=== PATIENT | male | born 1985 | race Caucasian/White ===

== ENCOUNTER 2023-06-12 15:50 | Emergency (ER) | payer BC, SELFPAY ==
[2023-06-12 16:02] VITALS: BP 174/107; PULSE 85; RESP 20; TEMP 35.6; O2SAT 97; BMI 40.0
--- NOTE | 2023-06-12 16:33 | ED_ITS ---
HPI - Allergic Reaction General Chief complaint: Allergic Reaction Stated complaint: allergic reaction Time Seen by Provider: 06/12/23 16:01 History of Present Illness HPI narrative: This 37-year-old male comes in reporting generalized maculopapular rash that is pruritic which began last evening. He does not know of any exposures or triggers that may have caused these symptoms. He denies having any sign of infection. He has not had any fever or pain. Related Data Home Medications Medication Instructions Recorded Confirmed No Known Home Medications 06/12/23 06/12/23 Previous Rx's Medication Instructions Recorded methylprednisolone 4 mg tablets in See Rx Instructions PO .COMPLEX 06/12/23 a dose pack (Medrol (Maximo)) #21 ea triamcinolone acetonide 0.1 % 1 applic topical BID #30 grams 06/12/23 topical cream Allergies Allergy/AdvReac Type Severity Reaction Status Date / Time amoxicillin Allergy Verified 06/12/23 16:05 Review of Systems Status of ROS Reports: 10 or more systems reviewed and unremarkable except as noted in History and below Narrative Constitutional: No fevers, no weight gain or loss. Eyes: No discharge. No vision changes. HENT: No congestion, no sore throat, no ear pain. Cardiovascular: No chest pain, no palpitations. Respiratory: No shortness of breath, no wheezes, no cough. Gastrointestinal: No abdominal pain, no vomiting, no diarrhea. Genitourinary: No dysuria, no hematuria. Musculoskeletal: Normal range of motion. Skin: Rash as described above. Neurological: No dizziness, weakness, sensory change, speech change. Endo/Heme/Allergies: No bruising or bleeding. No polydipsia. Pysch: no suicidality, no anxiety, no insomnia. All other systems reviewed and are negative. PFSH PFS Social History Smoking Status: Never smoker How often do you have a drink containing alcohol: never AUDIT-C Alcohol total score: 0 Non-prescribed substance use: denies use Exam Narrative: Exam Narrative: Constitutional: Well-developed, well-nourished, no acute distress. HEENT: Normocephalic, atraumatic. Neck: Normal range of motion. Nontender. Supple. Heart: Regular. No murmurs. Normal rate. Intact distal pulses. Lungs: Clear to auscultation. No chest discomfort. No wheezes, rhonchi, or rales. Abdomen: Normal bowel sounds. Nontender. No rebound tenderness. Genitalia: Deferred. Back: No midline tenderness. Normal range of motion. Extremities: Normal range of motion. No injury. Skin: Intact. Pruritic nonconfluent maculopapular rash scattered throughout his body. Neurologic: No altered sensation. No weakness. Alert and oriented. Psychiatric: No suicidality. No anxiety or depression. No insomnia. Nursing notes and vitals signs are reviewed. Const: Vital Signs, click to edit/add: Vital Signs - 24 hr 06/12/23 16:02 06/12/23 16:45 06/12/23 17:01 Temperature 96.0 F L Pulse Rate 73 74 Pulse Rate [Right Pulse Oximeter] 85 Respiratory Rate 20 16 Blood Pressure 122/86 Blood Pressure [Ri ght Upper Arm] 174/107 H Pulse Oximetry 97 95 95 Oxygen Delivery Me thod Room Air Room Air 06/12/23 17:15 Temperature Pulse Rate 80 Pulse Rate [Right Pulse Oximeter] Respiratory Rate Blood Pressure Blood Pressure [Ri ght Upper Arm] Pulse Oximetry 96 Oxygen Delivery Me thod Course Vital Signs Vital signs: Initial Vital Signs Temperature 96.0 F L 06/12/23 16:02 Temperature Source Temporal Artery Scan 06/12/23 16:02 Pulse Rate 85 06/12/23 16:02 Respiratory Rate 20 06/12/23 16:02 Blood Pressure 174/107 H 06/12/23 16:02 Blood Pressure Mean 129 H 06/12/23 16:02 Blood Pressure Position Sitting 06/12/23 16:02 Pulse Oximetry 97 06/12/23 16:02 Oxygen Delivery Method Room Air 06/12/23 16:02 Vital Signs Temperature 96.0 F L 06/12/23 16:02 Pulse Rate 85 06/12/23 16:02 Respiratory Rate 20 06/12/23 16:02 Blood Pressure 174/107 H 06/12/23 16:02 Pulse Oximetry 97 06/12/23 16:02 Oxygen Delivery Method Room Air 06/12/23 16:02 Temperature 96.0 F L 06/12/23 16:02 Pulse Rate 80 06/12/23 17:15 Respiratory Rate 16 06/12/23 17:01 Blood Pressure 122/86 06/12/23 17:01 Pulse Oximetry 96 06/12/23 17:15 Oxygen Delivery Method Room Air 06/12/23 16:45 Medications Administered Medications: Generic Name Dose Route Start Last Admin Trade Name Valery PRN Reason Stop Dose Admin Dexamethasone 10 mg 06/12/23 16:32 06/12/23 16:38 Dexamethasone 4 Mg/Ml Vial IV 06/12/23 16:33 10 mg ONCE ONE Administration MDM - Allergic Reaction MDM Narrative Medical decision making narrative: This patient comes in with generalized maculopapular rash as described above. He arrives with normal vital signs. An IV was placed soon after arrival by the nurse and labs are acquired. These returned with reassuring findings. His white count is slightly elevated at around 13. The patient did receive an IV dose of dexamethasone 10 mg. He has taken a couple doses of Benadryl. I explained that there is not a good test to find out what is causing this symptoms but he has not showing signs of compromise. I advised him to use and histamine as directed and a prescription for Medrol Dosepak and triamcinolone cream is provided. I also stated certain signs and symptoms that if they were to occur he should return for further evaluation and treatment. Lab Data Labs: Lab Results 06/12/23 Range/Units 16:15 WBC 13.23 H (4.50-11.00) K/uL RBC 5.30 (4.30-5.90) m/uL Hgb 16.0 (13.5-17.5) gm/dL Hct 47.1 (37.0-53.0) % MCV 89 (80-100) fL MCH 30 (26-34) pg MCHC 34 (32-36) gm/dL RDW Coeff of Ella 12.0 (11.5-15.5) % Plt Count 245 (140-440) K/uL Neut % (Auto) 80.4 H (42.0-72.0) % Lymph % (Auto) 13.1 L (20-44) % [place] % (Auto) 4.6 (0.0-11.0) % Eos % (Auto) 1.2 (0.0-7.0) % Baso % (Auto) 0.3 (0.0-3.0) % Neut # (Auto) 10.60 H (1.7-7.0) K/uL Lymph # (Auto) 1.70 (0.90-2.90) K/uL [place] # (Auto) 0.60 (0.00-0.90) K/UL Eos # (Auto) 0.20 (0.00-0.50) K/uL Baso # (Auto) 0.00 (0.00-0.30) K/uL Abs Immat Gran (auto) 0.10 (0.00-0.30) K/uL Imm/Tot Granulo (auto) 0.4 % Sodium 140 (135-149) mmol/L Potassium 3.7 (3.6-5.1) mmol/L Chloride 104 (96-114) mmol/L Carbon Dioxide 25 (20-32) mmol/L Anion Gap 11 (7-15) mEq/L BUN 16 (5-24) mg/dL Creatinine 1.5 (0.5-1.5) mg/dL Estimated Creat Clear 79.02 Estimated GFR 60 ml/min Glucose 114 (60-115) mg/dL Calcium 9.4 (8.4-10.6) mg/dL Discharge Plan Discharge Clinical Impression: Urticaria, Allergic reaction Patient Disposition: Home, Self-Care Condition: Stable Additional Instructions: Use [id number] antihistamines and take prescription medications also as needed and directed. Follow up with MD return if worsening symptoms occur. Prescriptions: New triamcinolone acetonide 0.1 % cream 1 applic topical BID Qty: 30 0RF methylprednisolone [Medrol (Maximo)] 4 mg tablets,dose pack See Rx Instructions .ROUTE .COMPLEX Qty: 21 0RF Rx Instructions: orally per package directions No Action No Known Home Medications Follow Up/Referrals: Provider,Not a Local [Primary Care Provider] - Stand Alone Forms: Hungry [facility] Info Instructions
[2023-06-12] MEDS: dexAMETHasone 4 MG/ML VIAL 10 MG IV (16:38)
[2023-06-12 16:39] LABS: Basophils Percent Auto 0.3 % (0.0-3.0); Eosinophils Percent Auto 1.2 % (0.0-7.0); Hematocrit 47.1 % (37.0-53.0); Immature Granulocytes Pct Auto 0.4 %; Lymphocytes Percent Auto 13.1 % (20-44); Mean Corpuscular HGB Conc 34 gm/dL (32-36); Mean Corpuscular Hemoglobin 30 pg (26-34); Mean Corpuscular Volume 89 fL (80-100); Monocytes Percent Auto 4.6 % (0.0-11.0); Neutrophils Percent Auto 80.4 % (42.0-72.0); Platelet Count* 245 K/uL (140-440); White Blood Count* 13.23 K/uL (4.50-11.00)
[2023-06-12 16:42] LABS: Slide Review Reflex No
[2023-06-12 16:45] VITALS: PULSE 73; O2SAT 95
[2023-06-12 16:59] LABS: Chloride* 104 mmol/L (96-114); Potassium* 3.7 mmol/L (3.6-5.1); Sodium* 140 mmol/L (135-149)
[2023-06-12 17:01] VITALS: BP 122/86; PULSE 74; RESP 16; O2SAT 95
[2023-06-12 17:02] LABS: Anion Gap 11 mEq/L (7-15); Blood Urea Nitrogen* 16 mg/dL (5-24); Calcium* 9.4 mg/dL (8.4-10.6); Carbon Dioxide* 25 mmol/L (20-32); Creatinine* 1.5 mg/dL (0.5-1.5); Est. Creatinine Clearance* 79.02; Estimated Glomerular Filt Rate 60 ml/min; Glucose* 114 mg/dL (60-115)
[2023-06-12 17:15] VITALS: PULSE 80; O2SAT 96
[2023-06-12 17:32] VITALS: BP 123/86; PULSE 78; RESP 12; O2SAT 96
== END 2023-06-12 17:40 | disposition home or self-care (01) ==
PROVIDERS: Emergency Provider Emergency Medicine Emergency Medical Services
DX: L50.9 Urticaria, unspecified (principal); T78.40XA Allergy, unspecified, initial encounter
CPT/HCPCS: 36415; 80048; 85025; 99283; 99285; J1100